=== PATIENT | female | born 1955 | race Caucasian/White ===

== ENCOUNTER 2023-04-12 08:44 | Day surgery (SDC) | payer MEDICARE, SELFPAY ==
[2023-04-12] VITALS (7 sets, daily range): BP systolic 139–179; BP diastolic 68–90; PULSE 56–61; RESP 12–16; TEMP 36.7–37.2; O2SAT 95–100; BMI 25.6
[2023-04-12] MEDS: ETHYL CHLORIDE 1 APPLICATION 1 APPLIC TOPICAL (09:18)
[2023-04-12] MEDS: BUPIVACAINE 0.5% 30 ML INJECTION (09:20)
[2023-04-12] MEDS: NEOMYCIN/BACITRACIN/POLYMYXIN B 1 APPLIC TOPICAL (10:39)
--- NOTE | 2023-04-12 10:44 | PM.ORPRC ---
Procedure Note Date of procedure: 04/12/23 Procedure: PREOPERATIVE DIAGNOSIS: 1. Right thumb flexor tenosynovitis - trigger thumb POSTOPERATIVE DIAGNOSIS: 1. Right thumb flexor tenosynovitis - trigger thumb PROCEDURE: 1. Right thumb flexor tendon sheath open release (A1 alcides) SURGEON: Evan Burch MD. TELECOMMUNICATIONS FIELD ENGINEER: Jhonatan Cullen ANESTHESIA: Local anesthetic 4ml via 50:50 mixture of 1% Lidocaine plain and 0.5% marcaine with epi EBL: 2mL IMPLANTS: None TOURNIQUET: None COMPLICATIONS: None evident INDICATIONS: The patient is a pleasant 67-year-old female who has experienced right thumb catching/triggering for number of months. It has progressively gotten worse. Given the failure of nonoperative management, and how this affects daily life, surgery was recommended. DESCRIPTION OF PROCEDURE: Following a thorough discussion of risks, benefits, and alternatives consent was obtained and the operative digit(s) was marked. The patient was brought to the operating room and placed supine on the operating table. Local anesthesia induction was undertaken in preop holding. No antibiotics were administered as this was planned to be a local case only. Proper time-out was performed identifying proper patient, site, and procedure. The operative extremity was prepped and draped in the appropriate sterile fashion using ChloraPrep. A incision was made on the palmar surface of the hand overlying the MCP joint region of the appropriate digit(s) respecting the palmar creases being cautious not to cross these perpendicularly. Sharp incision through the skin, and blunt dissection through subcutaneous tissue allowing protection of crossing neurologic structures. The A1 alcides was visualized directly. It was incised sharply with a 15 blade. It was released completely from its distal to proximal extent under direct visualization. The tendon was inspected and found to be mildly striated consistent with some friction as well as a nodule at the proximal edge of the alcides. Otherwise, it was intact. The tendon was removed out of the wound, and further inspected. The patient was asked to manually flex and extend the digits and showed no further catching. The catching, which was visualized initially, was no longer evident with reproduction of a manual fist and relaxation. Closure was performed with 4-O nylon in interrupted fashion. Soft dressings were applied, and the patient was transferred to the recovery room in stable condition. PLAN: 1. Encourage elevation of the operative extremity. 2. Range of motion of the fingers and hand/wrist as tolerated. 3. Ibuprofen/acetaminophen and/or Percocet as needed for pain control. 4. Follow up with PA visit in 12-16 days for wound check and suture removal.
== END 2023-04-12 11:09 | disposition home or self-care (01) ==
PROVIDERS: PCP Physician Assistant Medical; Visit Provider Orthopaedic Surgery Sports Medicine
PROC: (CPT 26055; principal; 2023-04-12 09:45)
DX: M65.311 Trigger thumb, right thumb (principal); M65.841 Other synovitis and tenosynovitis, right hand
CPT/HCPCS: 26055; J0665